=== PATIENT | female | born 1955 | race Caucasian/White ===

== ENCOUNTER 2023-05-15 16:18 | Emergency (ER) | payer OTHER ==
[~2023-05-15] VITALS: Ht 167.6 cm; Wt 68.0 kg
[2023-05-15 17:00] VITALS: BP_SYST 181; PULSE 83; RESP 18; TEMP 98.2; O2SAT 100
[2023-05-15] MEDS: NACL 0.9% 1,000 ML IV ONE (18:28)
[2023-05-15] MEDS: ONDANSETRON HCL 4 MG/2 ML VIAL IVP ONE (18:30)
[2023-05-15] MEDS ORDERED: GABAPENTIN (18:42)
[2023-05-15] MEDS ORDERED: LEVO112T5 PO (18:42)
[2023-05-15] MEDS ORDERED: FENO145T24 PO (18:42)
[2023-05-15] MEDS ORDERED: ROSU20TA73 PO (18:42)
[2023-05-15] MEDS ORDERED: OMEP20CA15 PO (18:42)
[2023-05-15] MEDS ORDERED: HYDR25TA4 PO (18:42)
[2023-05-15] MEDS ORDERED: INSU100I46 SUBCUT (18:42)
[2023-05-15] MEDS ORDERED: ESCI-6 PO (18:42)
[2023-05-15 18:53] LABS: BASOPHILS # (AUTO) 0.1 K/uL (0.0-0.2); BASOPHILS % (AUTO) 1.1 % (0.0-2.0); EOSINOPHILS # (AUTO) 0.1 K/uL (0.0-0.4); EOSINOPHILS % (AUTO) 1.3 % (0.0-4.0); HEMATOCRIT 39.1 % (36-48); HEMOGLOBIN 12.8 g/dL (12.0-16.0); LYMPHOCYTES # (AUTO) 2.3 K/uL (1.0-5.5); LYMPHOCYTES % (AUTO) 31.2 % (20.5-51.5); MEAN CORPUSCULAR HEMOGLOBIN 27 pg (27-31); MEAN CORPUSCULAR HGB CONC 33 % (32-36); MEAN CORPUSCULAR VOLUME 81 fL (79.0-98.0); MONOCYTES # (AUTO) 0.4 K/uL (0.0-1.0); MONOCYTES % (AUTO) 5.6 % (1.7-9.3); NEUTROPHILS # (AUTO) 4.5 K/uL (1.8-7.7); NEUTROPHILS % (AUTO) 60.8 % (40.0-70.0); PLATELET COUNT (AUTO) 194 K/uL (130-430); RED BLOOD CELL COUNT(AUTO) 4.82 MIL/uL (4.2-6.2); RED CELL DISTRIBUTION WIDTH 16.9 % (9.0-15.0); WHITE BLOOD COUNT (AUTO) 7.4 K/uL (4.8-10.8)
[2023-05-15 19:03] LABS: CALCIUM 9.8 mg/dL (8.4-11.0); CREATININE 1.05 mg/dL (0.55-1.30); POTASSIUM 3.6 mmol/L (3.5-5.1)
[2023-05-15 19:07] LABS: ALBUMIN 3.7 g/dL (3.4-4.8); BILIRUBIN,DIRECT 0.2 mg/dL (0.0-0.3); TOTAL BILIRUBIN 0.6 mg/dL (0.0-1.0); TOTAL PROTEIN, SERUM 7.9 g/dL (6.4-8.3)
[2023-05-15] MEDS ORDERED: ONDA-8 TL (20:41)
[2023-05-15] MEDS ORDERED: OMEP40CA20 PO (20:41)
[2023-05-15 20:54] VITALS: BP_SYST 147; PULSE 57; RESP 16; TEMP 98.8; O2SAT 98
== END 2023-05-15 20:49 | disposition home or self-care (01) ==
LOC: SED 16:18
DX: K29.00 Acute gastritis without bleeding (principal); E86.0 Dehydration; R11.2 Nausea with vomiting, unspecified; Z79.899 Other long term (current) drug therapy
CPT/HCPCS: 99283; 96374; 96361; 80076; 80048; 83690; 85025; 36415; J2405; J7030